=== PATIENT | male | born 1955 | race Caucasian/White ===

== ENCOUNTER 2018-07-03 15:48 | Outpatient (REF) | payer MEDICAID, SELFPAY ==
[2018-07-03 21:32] LABS: Anion Gap 6.9 mmol/L (3-11); BUN 18 mg/dL (7-18); CO2 31.1 mmol/L (21.0-32.0); Calcium 8.9 mg/dL (8.5-10.1); Chloride 102 mmol/L (98-107); Sodium 140 mmol/L (136-145)
[2018-07-03 21:47] LABS: Glucose 35 mg/dL (70-100)
[2018-07-05 12:45] LABS: Hepatitis C Ab w Rflx HCV PCR Negative (NEGAT)
== END 2018-07-03 16:08 ==
LOC: NCHCN 15:48
PROVIDERS: PCP Internal Medicine; Visit Provider Internal Medicine
DX: I10 Essential (primary) hypertension (principal); Z11.59 Encounter for screening for other viral diseases; Z00.00 Encounter for general adult medical examination without abnormal findings
CPT/HCPCS: 80048; 86803

== ENCOUNTER 2018-07-03 16:55 | Emergency (ER) | payer MEDICAID, SELFPAY ==
--- NOTE | 2018-07-03 16:58 | W.ED.GENAD ---
Discharge Plan Disposition Patient Disposition: AGAINST MEDICAL ADVICE Discharge Details Chief Complaint: Diabetes Clinical Impression: Hypoglycemia Primary Care Provider: Brando Perla ED Provider: Trinidad Mckinley Home Meds and New Rx's Prescriptions: No Action blood sugar diagnostic [FreeStyle Test] 1 EACH strip 1 ea Miscellaneous TID RF: 0 insulin syringe-needle U-100 [Exel Insulin] 1 EACH syringe 1 ea Miscellaneous TID RF: 0 lisinopril 2.5 MG tablet 5 mg PO DAILY RF: 0 pen needle, diabetic [NovoFine 30] 1 EACH needle 1 ea Miscellaneous TID RF: 0 compression socks, large [Medicool's Diasox Large] 1 EACH misc 1 ea Miscellaneous ONCE RF: 0 gabapentin [Neurontin] 600 MG tablet 600 mg PO TID RF: 0 aspirin [Aspir-Low] 81 MG tablet,delayed release (DR/EC) 81 mg PO DAILY RF: 0 insulin aspart U-100 [Novolog PenFill U-100 Insulin] 100 UNIT/ML cartridge 10 - 15 units SQ TID RF: 0 insulin glargine [Lantus Solostar U-100 Insulin] 100 UNIT/ML insulin pen 50 unit SQ .DAILY AT 1100 RF: 0 clonazepam 1 MG tablet 1 mg PO BID PRNRF: 0 Discharge Data Discharge Date/Time-TO BE ENTERED AT DEPARTURE: 07/03/18 18:37 Medical Decision Making Patient is 62-year-old male, accompanied by his family, with chief concern for hypoglycemia and ingestion of Rose's oil soap. EMS was initially told out for a diabetic emergency at which time they found male with a glucose in the 50s who seemed quite confused. Report they gave him oral glucose and the patient drink nuchal syrup which brought his glucose up into the 180s. At this point, patient feels that he is much improved. He declined EMS transport. However, EMS recommended that he be evaluated as he has had multiple hypoglycemic episodes recently prompting their evaluation. They are concerned there may be another underlying medical cause of his hypoglycemia. Family is also concerned that when he was confused he drank a few mouthfuls of Rose oil soap. Patient is denying this. States I remember everything and I only put up to my lips. When I questioned him why, during a hypoglycemic event, he would try to make a joke about drinking a engine cleaner, he is fairly unclear. However, the children and his , who witnessed this, are quite certain that the patient did ingest some amount of the engine cleaner. Consulted with poison control center who advised that with intake of the Rose oil soap, it would likely cause GI upset within the first hour. May initially cause N/V and later lead to diarrhea. They did advise that it may be slightly alkalotic which may be irritating. Advised we watch for throat irritation similar to a burn and advised on sipping on fluids but not a lot of p.o. intake at this time Patient appears nontoxic. Breathing comfortably. He does seem slightly agitated and is questioning why he is here. I did advise him on the concerns of the EMS. In particular, we discussed his multiple hypoglycemic episodes that she reports is due to my diet. He reports that he goes long intervals without any ingestion of food. Reports he has been taking his medication as prescribed. States that he has not adjusted his insulin dosing based on his change in dietary habits. My exam of the patient was delayed secondary to critical patient. Patient was pacing in the hallway when I approached him to let him know of my current situation and reassure him that I would complete his evaluation as soon as possible. However, he seems to have increased agitation and he and his family are requesting discharge. I did discuss with him that I am concerned that he may continue to have these hypoglycemic episodes at there may be a medical reason that is driving his recurrent hypoglycemia. I also expressed concern for his ingestion which the patient continues to adamantly deny having occurred. Patient signed out AGAINST MEDICAL ADVICE. He does not wish to stay in the department anymore. Patient was lucid and appropriate at the time of his report HPI General Mode of arrival: ambulatory. Date/Time Provider Initiated Documentation: 07/03/18 16:56. Limitations to Documentation: no limitations. Information obtained by: patient. History of Present Illness 62 year old M presents to the emergency department with the chief complaint of hypoglycemia, ingestion of household engine cleaner, described as similar to prior episodes (has had multiple hypoglycemic episodes recently), Patient started experiencing this week(s) and it has been intermittent and now resolved. Patient notes denies chest pain, cough, fever/chills, headaches, loss of appetite, nausea/vomiting, rash, shortness of breath and syncope. Patient did receive the following treatments prior to arrival, other (glucose) Related Data Home Medications Medication Instructions Recorded Confirmed aspirin [Aspir-Low] 81 mg PO DAILY 11/12/13 07/03/18 clonazepam 1 mg PO BID PRN 11/12/13 07/03/18 gabapentin [Neurontin] 600 mg PO TID 11/12/13 07/03/18 insulin aspart U-100 [Novolog 10 - 15 units SQ TID 11/12/13 07/03/18 PenFill U-100 Insulin] insulin glargine [Lantus Solostar 50 unit SQ .DAILY AT 1100 11/12/13 07/03/18 U-100 Insulin] blood sugar diagnostic [FreeStyle strip 11/13/13 01/21/17 Test] compression socks, large ea 11/13/13 01/21/17 [Medicool's Diasox Large] insulin syringe-needle U-100 [Exel 11/13/13 01/21/17 Insulin] lisinopril 5 mg PO DAILY tab-cap 11/13/13 07/03/18 pen needle, diabetic [NovoFine 30] 11/13/13 01/21/17 Allergies Allergy/AdvReac Type Severity Reaction Status Date / Time No Known Allergies Allergy Unverified 07/03/18 17:13 Review of Systems Constitutional Reports as per HPI (this was very limited as patient left AMA prior to full evaluation) Cardiovascular Denies chest pain and Denies dyspnea Respiratory Denies cough and Denies dyspnea Gastrointestinal Reports as per HPI, Denies abdominal pain, Denies nausea and Denies vomiting Integumentary/Breasts Reports as per HPI Neurologic Reports as per HPI [facility] Social History Smoking/Tobacco Use Status: Never Surgical History Colonoscopy - IV Sedation (01/21/17) Extraction of cataract ORIF right humerous Exam Const General: healthy appearing, comfortable, no acute distress, well developed and well groomed Nutritional Appearance: average body habitus and well nourished Orientation: alert, awake and oriented x3 Resp Effort & Inspection: normal respiratory effort, able to speak in complete sentences and no respiratory distress Neuro General: alert and awake Cognition: normal cognition Speech: speech normal Gait: normal gait
--- NOTE | 2018-07-03 17:01 | ED.GENADUL_ITS ---
Discharge Plan Disposition Patient Disposition: AGAINST MEDICAL ADVICE Discharge Details Chief Complaint: Diabetes Clinical Impression: Hypoglycemia Primary Care Provider: Brando Perla ED Provider: Trinidad Mckinley Home Meds and New Rx's Prescriptions: No Action blood sugar diagnostic [FreeStyle Test] 1 EACH strip 1 ea Miscellaneous TID RF: 0 insulin syringe-needle U-100 [Exel Insulin] 1 EACH syringe 1 ea Miscellaneous TID RF: 0 lisinopril 2.5 MG tablet 5 mg PO DAILY RF: 0 pen needle, diabetic [NovoFine 30] 1 EACH needle 1 ea Miscellaneous TID RF: 0 compression socks, large [Medicool's Diasox Large] 1 EACH misc 1 ea Miscellaneous ONCE RF: 0 gabapentin [Neurontin] 600 MG tablet 600 mg PO TID RF: 0 aspirin [Aspir-Low] 81 MG tablet,delayed release (DR/EC) 81 mg PO DAILY RF: 0 insulin aspart U-100 [Novolog PenFill U-100 Insulin] 100 UNIT/ML cartridge 10 - 15 units SQ TID RF: 0 insulin glargine [Lantus Solostar U-100 Insulin] 100 UNIT/ML insulin pen 50 unit SQ .DAILY AT 1100 RF: 0 clonazepam 1 MG tablet 1 mg PO BID PRNRF: 0 Discharge Data Discharge Date/Time-TO BE ENTERED AT DEPARTURE: 07/03/18 18:37 Medical Decision Making Patient is 62-year-old male, accompanied by his family, with chief concern for hypoglycemia and ingestion of Rose's oil soap. EMS was initially told out for a diabetic emergency at which time they found male with a glucose in the 50s who seemed quite confused. Report they gave him oral glucose and the patient drink nuchal syrup which brought his glucose up into the 180s. At this point, patient feels that he is much improved. He declined EMS transport. However, EMS recommended that he be evaluated as he has had multiple hypoglycemic episodes recently prompting their evaluation. They are concerned there may be another underlying medical cause of his hypoglycemia. Family is also concerned that when he was confused he drank a few mouthfuls of Rose oil soap. Patient is denying this. States I remember everything and I only put up to my lips. When I questioned him why, during a hypoglycemic event, he would try to make a joke about drinking a equipment cleaner, he is fairly unclear. However, the children and his , who witnessed this, are quite certain that the patient did ingest some amount of the equipment cleaner. Consulted with poison control center who advised that with intake of the Rose oil soap, it would likely cause GI upset within the first hour. May initially cause N/V and later lead to diarrhea. They did advise that it may be slightly alkalotic which may be irritating. Advised we watch for throat irritation similar to a burn and advised on sipping on fluids but not a lot of p.o. intake at this time Patient appears nontoxic. Breathing comfortably. He does seem slightly agitated and is questioning why he is here. I did advise him on the concerns of the EMS. In particular, we discussed his multiple hypoglycemic episodes that she reports is due to my diet. He reports that he goes long intervals without any ingestion of food. Reports he has been taking his medication as prescribed. States that he has not adjusted his insulin dosing based on his change in dietary habits. My exam of the patient was delayed secondary to critical patient. Patient was pacing in the hallway when I approached him to let him know of my current situation and reassure him that I would complete his evaluation as soon as possible. However, he seems to have increased agitation and he and his family are requesting discharge. I did discuss with him that I am concerned that he may continue to have these hypoglycemic episodes at there may be a medical reason that is driving his recurrent hypoglycemia. I also expressed concern for his ingestion which the patient continues to adamantly deny having occurred. Patient signed out AGAINST MEDICAL ADVICE. He does not wish to stay in the department anymore. Patient was lucid and appropriate at the time of his report HPI General Mode of arrival: ambulatory . Date/Time Provider Initiated Documentation: 07/03/18 16:56 . Limitations to Documentation: no limitations . Information obtained by: patient . History of Present Illness 62 year old M presents to the emergency department with the chief complaint of hypoglycemia, ingestion of household equipment cleaner, described as similar to prior episodes (has had multiple hypoglycemic episodes recently), Patient started experiencing this week(s) and it has been intermittent and now resolved. Patient notes denies chest pain, cough, fever/chills, headaches, loss of appetite, nausea/vomiting, rash, shortness of breath and syncope. Patient did receive the following treatments prior to arrival, other (glucose) Related Data Home Medications Medication Instructions Recorded Confirmed aspirin [Aspir-Low] 81 mg PO DAILY 11/12/13 07/03/18 clonazepam 1 mg PO BID PRN 11/12/13 07/03/18 gabapentin [Neurontin] 600 mg PO TID 11/12/13 07/03/18 insulin aspart U-100 [Novolog 10 - 15 units SQ TID 11/12/13 07/03/18 PenFill U-100 Insulin] insulin glargine [Lantus Solostar 50 unit SQ .DAILY AT 1100 11/12/13 07/03/18 U-100 Insulin] blood sugar diagnostic [FreeStyle strip 11/13/13 01/21/17 Test] compression socks, large ea 11/13/13 01/21/17 [Medicool's Diasox Large] insulin syringe-needle U-100 [Exel 11/13/13 01/21/17 Insulin] lisinopril 5 mg PO DAILY tab-cap 11/13/13 07/03/18 pen needle, diabetic [NovoFine 30] 11/13/13 01/21/17 Allergies Allergy/AdvReac Type Severity Reaction Status Date / Time No Known Allergies Allergy Unverified 07/03/18 17:13 Review of Systems Constitutional Reports as per HPI (this was very limited as patient left AMA prior to full evaluation) Cardiovascular Denies chest pain and Denies dyspnea Respiratory Denies cough and Denies dyspnea Gastrointestinal Reports as per HPI, Denies abdominal pain, Denies nausea and Denies vomiting Integumentary/Breasts Reports as per HPI Neurologic Reports as per HPI [facility] Social History Smoking/Tobacco Use Status: Never Surgical History Colonoscopy - IV Sedation (01/21/17) Extraction of cataract ORIF right humerous Exam Const General: healthy appearing, comfortable, no acute distress, well developed and well groomed Nutritional Appearance: average body habitus and well nourished Orientation: alert, awake and oriented x3 Resp Effort & Inspection: normal respiratory effort, able to speak in complete sentences and no respiratory distress Neuro General: alert and awake Cognition: normal cognition Speech: speech normal Gait: normal gait
[2018-07-03 17:07] VITALS: BP 159/79; PULSE 53; RESP 16; TEMP 36; O2SAT 98
--- NOTE | 2018-07-03 18:34 | NUR.NOTE ---
Nursing Note: Verbally abusive to RN and PA. ED PA to bedside. Encourages patient to stay in the dept to complete evaluation. Pt states I know what is wrong and I assume the risks. Pt continues to verbally assault staff as he ambulated out of the department. AMA papers signed
== END 2018-07-03 18:37 | disposition left against medical advice (07) ==
PROVIDERS: Emergency Provider Physician Assistant; PCP Internal Medicine
DX: E11.649 Type 2 diabetes mellitus with hypoglycemia without coma (principal); Z79.4 Long term (current) use of insulin; R41.0 Disorientation, unspecified; R45.1 Restlessness and agitation; Z53.29 Procedure and treatment not carried out because of patient's decision for other reasons
CPT/HCPCS: 36416; 82962; 99282

== ENCOUNTER 2019-07-05 02:46 | Outpatient (CLI) | payer MEDICARE, MEDICAID, SELFPAY ==
--- NOTE | 2019-07-05 09:27 | DI.US_ITS ---
EXAM: US CAROTID CLINICAL HISTORY: TIA G45.9, TRANSIENT RIGHT-SIDED WEAKNESS TECHNIQUE: Duplex evaluation of the carotid circulation was performed according to the usual protoco l. COMPARISON: No exams were available for comparison FINDINGS: There is minimal visible atheromatous plaque in the carotid bulbs. There is bilateral antegrade vert ebral flow. Flow velocities in common, internal and external carotid arteries are within normal limits bilaterall y. IMPRESSION: No evidence of a hemodynamically significant carotid stenosis.
== END 2019-07-05 03:06 ==
PROVIDERS: PCP Internal Medicine; Visit Provider Internal Medicine
DX: G45.9 Transient cerebral ischemic attack, unspecified (principal)
CPT/HCPCS: 93880